=== PATIENT | male | born 1955 | race Caucasian/White ===

== ENCOUNTER 2016-06-10 08:08 | Outpatient (CLI) | payer BC | END 2016-06-10 08:09 | disposition home or self-care (01) | DX: Z12.2 Encounter for screening for malignant neoplasm of respiratory organs (principal); F17.210 Nicotine dependence, cigarettes, uncomplicated ==

== ENCOUNTER 2017-11-10 07:03 | Outpatient (CLI) | payer BC ==
[2017-11-10 12:39] LABS: BASOPHILS # (AUTO) 0.1 10^3/uL (0.0-0.1); EOSINOPHILS # (AUTO) 0.2 10^3/uL (0.0-0.7); EOSINOPHILS % (AUTO) 2.3 %; LYMPHOCYTES # (AUTO) 1.6 10^3/uL (1.5-3.5); LYMPHOCYTES % (AUTO) 19.8 %; MEAN CORPUSCULAR HEMOGLOBIN 32.7 pg (27.0-31.0); MEAN CORPUSCULAR HGB CONC 34.3 g/dL (32.0-36.0); MEAN CORPUSCULAR VOLUME 95.3 fL (80.0-94.0); MEAN PLATELET VOLUME 9.5 fL (7.4-11.4); MONOCYTES # (AUTO) 0.7 10^3/uL (0.0-1.0); MONOCYTES % (AUTO) 8.6 %; NEUTROPHILS # (AUTO) 5.4 10^3/uL (1.5-6.6); NEUTROPHILS % (AUTO) 68.3 %; PLT - PLATELET COUNT 182 10^3/uL (130-450); RED BLOOD COUNT 5.19 10^6/uL (4.70-6.10); RED CELL DISTRIBUTION WIDTH 13.3 % (12.0-15.0); WHITE BLOOD COUNT 7.9 x10^3/uL (4.8-10.8)
[2017-11-10 13:02] LABS: ALBUMIN 4.2 g/dL (3.2-5.5); ALBUMIN/GLOBULIN RATIO 1.2 (1.0-2.2); ALKALINE PHOSPHATASE 78 IU/L (42-121); ALT ALANINE AMINOTRANSFERASE 18 IU/L (10-60); AST ASPARTATE AMINOTRANSFERASE 23 IU/L (10-42); BILIRUBIN,TOTAL 0.7 mg/dL (0.2-1.0); BUN - BLOOD UREA NITROGEN 19 mg/dL (6-20); CALCIUM 9.5 mg/dL (8.5-10.3); CARBON DIOXIDE - CO2 28 mmol/L (21-32); CHLORIDE 100 mmol/L (101-111); CHOL/HDL RATIO 4.6 (<5.0); CHOLESTEROL 162 mg/dL; CREATININE 0.8 mg/dL (0.6-1.2); GFR - MDRD 98 (>89); GLUCOSE 103 mg/dL (70-100); HDL CHOLESTEROL 35 mg/dL; LDL CHOLESTEROL,CALCULATED 115 mg/dL; LDL/HDL RATIO 3.3 (<3.6); SODIUM 134 mmol/L (135-145); TOTAL PROTEIN 7.8 g/dL (6.7-8.2); VLDL CHOLESTEROL 12 mg/dL
[2017-11-10 13:44] LABS: THYROID STIMULATING HORMONE < 0.08 uIU/mL (0.34-5.60)
[2017-11-10 13:46] LABS: FREE T4 (FREE THYROXINE) 1.89 ng/dL (0.58-1.64)
[2017-11-10 13:51] LABS: HEMOGLOBIN A1C 0.66 g/dL; HEMOGLOBIN A1C % 5.3 % (4.6-6.2)
[2017-11-10 13:52] LABS: PSA SCREEN (Z12.5) 0.486 ng/mL (0.000-2.000)
[2017-11-10 13:56] LABS: FREE T3 3.71 pg/mL (2.5-3.9)
== END 2017-11-10 07:04 | disposition home or self-care (01) ==
LOC: LAB.WCP 07:03
PROVIDERS: ATTEND Physician Assistant
DX: E78.5 Hyperlipidemia, unspecified (principal); Z51.81 Encounter for therapeutic drug level monitoring; R73.9 Hyperglycemia, unspecified; Z12.5 Encounter for screening for malignant neoplasm of prostate; E29.1 Testicular hypofunction; E03.9 Hypothyroidism, unspecified
CPT/HCPCS: 36415; 80053; 80061; 83036; 83721; 84153; 84403; 84439; 84443; 84481; 85025

== ENCOUNTER 2017-12-19 12:40 | Outpatient (CLI) | payer BC ==
--- NOTE | 2017-12-19 16:27 | Ultrasound Report ---
Procedure Date: 12/19/2017 Accession Number: [id number] / [id number] Procedure: US - Retroperitoneal Limited CPT Code: FULL RESULT: EXAM: Retroperitoneal Limited DATE: 12/19/2017 4:17 PM CLINICAL HISTORY: ARTERIOSCLEROTIC HEART DISEASE/ABDOMINAL ANEURYSM COMPARISON: Abdominal ultrasound 04/28/2016. TECHNIQUE: Real-time sonographic imaging of retroperitoneal vascular structures, including color-flow, was performed by the solid waste technician. Multiple marketing representative static images were saved for review. FINDINGS: Aorta: The abdominal aorta is adequately visualized and the known infrarenal abdominal aortic aneurysm measures 5 cm in AP dimension by 5.1 cm in transverse dimension. There is posterior mural thrombus approximately 0.8 cm thick. By ultrasound there is no definite aneurysmal extension into the iliacs with the right common iliac artery measuring up to 1 x 0.7 centimeters and the left common iliac artery measuring up to 1.1 x 1.1 centimeters. The iliac vessels are patent by spectral Doppler with arterial waveform. The aneurysm is patent by color Doppler. IMPRESSION: Interval enlargement of the infrarenal abdominal aneurysm to 5 cm. Surgical or endovascular referral is recommended. [facility]
== END 2017-12-19 12:41 | disposition home or self-care (01) ==
LOC: DI 12:40
PROVIDERS: ATTEND Physician Assistant
DX: I71.4 Abdominal aortic aneurysm, without rupture (principal); I25.10 Atherosclerotic heart disease of native coronary artery without angina pectoris
CPT/HCPCS: 76775; 93306

== ENCOUNTER 2018-01-05 15:44 | Outpatient (CLI) | payer BC | END 2018-01-05 15:45 | disposition home or self-care (01) | LOC: LAB.WCP 15:44 | PROVIDERS: ATTEND Physician Assistant Medical | DX: E03.9 Hypothyroidism, unspecified (principal); I71.4 Abdominal aortic aneurysm, without rupture | CPT/HCPCS: 36415; 82565; 84443 ==

== ENCOUNTER 2018-01-30 12:17 | Outpatient (CLI) | payer BC ==
[2018-01-30 19:32] LABS: THYROID STIMULATING HORMONE < 0.08 uIU/mL (0.34-5.60)
[2018-01-30 19:34] LABS: FREE T4 (FREE THYROXINE) 1.42 ng/dL (0.58-1.64)
== END 2018-01-30 12:18 | disposition home or self-care (01) ==
LOC: LAB.WCP 12:17
PROVIDERS: ATTEND Physician Assistant
DX: E03.9 Hypothyroidism, unspecified (principal)
CPT/HCPCS: 36415; 84439; 84443

== ENCOUNTER 2018-02-16 10:40 | Outpatient (CLI) | payer BC | END 2018-02-16 10:41 | LOC: DI 10:40 | PROVIDERS: ATTEND Physician Assistant | DX: Z53.09 Procedure and treatment not carried out because of other contraindication (principal) ==

== ENCOUNTER 2018-05-30 08:00 | Outpatient (CLI) | payer BC ==
[2018-05-30 15:17] LABS: THYROID STIMULATING HORMONE 4.61 uIU/mL (0.34-5.60)
[2018-05-30 15:19] LABS: FREE T4 (FREE THYROXINE) 1.36 ng/dL (0.58-1.64)
== END 2018-05-30 23:59 | disposition home or self-care (01) ==
LOC: LAB.WCP 08:00
PROVIDERS: ATTEND Physician Assistant
DX: E03.9 Hypothyroidism, unspecified (principal)
CPT/HCPCS: 36415; 84439; 84443

== ENCOUNTER 2018-12-19 08:00 | Outpatient (CLI) | payer BC ==
[2018-12-19 13:17] LABS: FREE T4 (FREE THYROXINE) 1.59 ng/dL (0.58-1.64); THYROID STIMULATING HORMONE 1.9 uIU/mL (0.34-5.60)
== END 2018-12-19 23:59 | disposition home or self-care (01) ==
LOC: LAB.WCP 08:00
PROVIDERS: ATTEND Physician Assistant
DX: E03.9 Hypothyroidism, unspecified (principal)
CPT/HCPCS: 36415; 84439; 84443

== ENCOUNTER 2019-02-08 11:19 | Outpatient (CLI) | payer BC ==
[2019-02-08 18:36] LABS: BASOPHILS # (AUTO) 0.1 10^3/uL (0.0-0.1); BASOPHILS % (AUTO) 0.8 %; EOSINOPHILS # (AUTO) 0.2 10^3/uL (0.0-0.7); EOSINOPHILS % (AUTO) 2.4 %; HGB - HEMOGLOBIN 15.2 g/dL (14.0-18.0); LYMPHOCYTES # (AUTO) 2.2 10^3/uL (1.5-3.5); LYMPHOCYTES % (AUTO) 27.3 %; MEAN CORPUSCULAR HEMOGLOBIN 32.2 pg (27.0-31.0); MEAN CORPUSCULAR HGB CONC 33.3 g/dL (32.0-36.0); MEAN CORPUSCULAR VOLUME 96.8 fL (80.0-94.0); MEAN PLATELET VOLUME 11.3 fL (7.4-11.4); MONOCYTES # (AUTO) 0.7 10^3/uL (0.0-1.0); MONOCYTES % (AUTO) 8.9 %; NEUTROPHILS # (AUTO) 4.8 10^3/uL (1.5-6.6); NEUTROPHILS % (AUTO) 60.3 %; PLT - PLATELET COUNT 183 10^3/uL (130-450); RED BLOOD COUNT 4.72 10^6/uL (4.70-6.10); RED CELL DISTRIBUTION WIDTH 13.2 % (12.0-15.0)
[2019-02-08 19:01] LABS: ALBUMIN 4.3 g/dL (3.2-5.5); ALBUMIN/GLOBULIN RATIO 1.4 (1.0-2.2); ALKALINE PHOSPHATASE 55 IU/L (42-121); ALT ALANINE AMINOTRANSFERASE 17 IU/L (10-60); AST ASPARTATE AMINOTRANSFERASE 22 IU/L (10-42); BILIRUBIN,TOTAL 0.7 mg/dL (0.2-1.0); BUN - BLOOD UREA NITROGEN 24 mg/dL (6-20); CALCIUM 9.3 mg/dL (8.5-10.3); CARBON DIOXIDE - CO2 27 mmol/L (21-32); CHLORIDE 102 mmol/L (101-111); CHOL/HDL RATIO 3.8 (<5.0); CHOLESTEROL 147 mg/dL; CREATININE 0.9 mg/dL (0.6-1.2); GFR - MDRD 85 (>89); GLUCOSE 96 mg/dL (70-100); HDL CHOLESTEROL 39 mg/dL; LDL CHOLESTEROL,CALCULATED 93 mg/dL; LDL/HDL RATIO 2.4 (<3.6); SODIUM 136 mmol/L (135-145); TOTAL PROTEIN 7.3 g/dL (6.7-8.2); VLDL CHOLESTEROL 15 mg/dL
== END 2019-02-08 23:59 | disposition home or self-care (01) ==
LOC: LAB.WCP 11:19
PROVIDERS: ATTEND Physician Assistant
DX: I10 Essential (primary) hypertension (principal); E78.5 Hyperlipidemia, unspecified; E03.9 Hypothyroidism, unspecified; Z12.5 Encounter for screening for malignant neoplasm of prostate
CPT/HCPCS: 36415; 80053; 80061; 83721; 84153; 84443; 85025

== ENCOUNTER 2019-03-15 10:18 | Outpatient (CLI) | payer BC ==
--- NOTE | 2019-03-16 13:20 | CT Report ---
Reason: SMOKER Procedure Date: 03/15/2019 Accession Number: [id number] / [id number] Procedure: CT - Low Dose Lung Cancer Screen CPT Code: FULL RESULT: EXAM CT LUNG SCREEN EXAM DATE: 03/15/2019 10:34 AM. HISTORY: 64-year-old patient with [id number] smoking history. Currently smoking: Yes. COMPARISON: CHEST SCREEN LOW DOSE W/O 06/10/2016 8:35 AM CHEST W/ 01/21/2013 5:52 PM. TECHNIQUE: CT examination of the entire thorax without contrast was performed using low-dose technique. Thin section coronal, axial, sagittal and MIP axial images were obtained. In accordance with CT protocol optimization, one or more of the following dose reduction techniques were utilized for this exam: automated exposure control, adjustment of mA and/or KV based on patient size, or use of iterative reconstructive technique. FINDINGS: Nodules: Right upper lobe: Stable 2 mm pulmonary nodule series 4 image 16; stable 2-3 mm pulmonary nodule series 4 image 26; stable 2 mm pulmonary nodule series 4 image 79. Right middle lobe: None. Right lower lobe: None. Left upper lobe: None. Left lower lobe: None. Emphysema: None. Pleura: Stable focal areas of calcific pleural plaquing in the left hemithorax. New elongated/band-like pleural-based mass/consolidation posterior left lower hemithoracic pleura with convex anterior margin measuring 43 x 28 x 20 mm (reference series 4 images 91 through 104). Aorta: Atherosclerotic deposition of the arch and origin great vessels. Interval endograft repair incompletely included of partially included abdominal aortic aneurysm. Mediastinum: Unremarkable. Coronary calcifications: Significant coronary artery calcium of the left anterior descending coronary artery. Other pulmonary findings: None. Other extrapulmonary findings: None. IMPRESSION: 1. New band-like pleural-based mass/consolidation favors inflammatory process such as rounded atelectasis or sequela of pulmonary infarction more than mass. Lung-RADS ASSESSMENT CATEGORY: 3 - probably benign. Probability of malignancy: 1-2%. RECOMMENDATION: Recommend short interval follow-up low-dose lung CT in 6 weeks to assess for expected resolution or involution. If persistent or increased at follow-up, tissue sampling may be indicated. Recommended follow up based on ACR Lung-RADS Version 1.1 Guidelines. [facility]
== END 2019-03-15 10:19 | disposition home or self-care (01) ==
LOC: DI 10:18
PROVIDERS: ATTEND Physician Assistant
DX: Z12.2 Encounter for screening for malignant neoplasm of respiratory organs (principal); R91.8 Other nonspecific abnormal finding of lung field; F17.210 Nicotine dependence, cigarettes, uncomplicated

== ENCOUNTER 2020-04-16 16:54 | Emergency (ER) | payer BC, MEDICARE ==
--- NOTE | 2020-04-16 17:14 | ED Physician Documentation ---
PD HPI ABD PAIN - Stated complaint Stated Complaint: MALE - Chief complaint Chief Complaint: Abd Pain - History obtained from History obtained from: Patient - Additional information Additional information: 65-year-old gentleman with history of peripheral vascular disease and AAA repair presents with very dark urine starting 4 days ago. It is painless. No flank pain. No urinary urgency. If anything he might be urinating slightly less than normal. Review of Systems Ten Systems: 10 systems reviewed and negative Constitutional: reports: Reviewed and negative Nose: reports: Reviewed and negative Throat: reports: Reviewed and negative Cardiac: reports: Reviewed and negative Respiratory: reports: Reviewed and negative PD PAST MEDICAL HISTORY - Past Medical History Cardiovascular: Hypertension Respiratory: None Endocrine/Autoimmune: HyPOthyroidism GI: None : None HEENT: None Psych: None Musculoskeletal: None Derm: None - Past Surgical History General: Cholecystectomy, Hiatal hernia repair - Present Medications Home Medications: Ambulatory Orders Medication Instructions Recorded Confirmed Levothyroxine [Synthroid] 179 mcg PO DAILY 05/12/14 05/12/14 Aspirin [Aspir-Low] 81 mg PO DAILY 05/13/14 05/13/14 Pravastatin Sodium 20 mg PO DAILY 05/13/14 05/13/14 Ciprofloxacin HCl [Cipro] 500 mg PO BID 7 Days #14 tablet 04/16/20 - Allergies Allergies/Adverse Reactions: Allergies Allergy/AdvReac Type Severity Reaction Status Date / Time No Known Drug Allergies Allergy Verified 04/16/20 17:02 PD ED PE NORMAL - Vitals Vital signs reviewed: Yes - General General: Alert and oriented X 3, No acute distress - HEENT HEENT: PERRL, EOMI - Neck Neck: Supple, no meningeal sign, No bony TTP - Cardiac Cardiac: RRR, No murmur - Respiratory Respiratory: No respiratory distress, Clear bilaterally - Abdomen Abdomen: Soft, Non tender - Male Male : Other (His urine was viewed as the sample was available when I first saw him and very thick hematuria without clots) - Back Back: No CVA TTP, No spinal TTP - Derm Derm: Normal color, Warm and dry - Extremities Extremities: No edema, No calf tenderness / cord - Neuro Neuro: Alert and oriented X 3, Normal speech Results - Vitals Vitals: Vital Signs - 24 hr 04/16/20 04/16/20 04/16/20 17:02 19:18 20:01 Temperature 37.0 C Heart Rate 89 72 71 Respiratory 18 18 Rate Blood Pressure 154/82 H 144/100 H 135/73 H O2 Saturation 95 94 93 Oxygen O2 Source Room air - Labs Labs: Laboratory Tests 04/16/20 04/16/20 04/16/20 17:10 17:25 17:25 WBC 8.3 RBC 4.83 Hgb 16.1 Hct 46.1 MCV 95.4 H MCH 33.3 H MCHC 34.9 RDW 12.8 Plt Count 179 MPV 10.4 Neut # (Auto) 4.7 Lymph # (Auto) 2.3 [place] # (Auto) 0.9 Eos # (Auto) 0.3 Baso # (Auto) 0.1 Absolute Nucleated RBC 0.00 Nucleated RBC % 0.0 Sodium 134 L Potassium 4.3 Chloride 99 L Carbon Dioxide 24 Anion Gap 11.0 BUN 33 H Creatinine 1.4 H Estimated GFR (MDRD) 51 L Glucose 97 Calcium 9.5 Total Bilirubin 0.9 AST 27 ALT 22 Alkaline Phosphatase 63 Total Creatine Kinase 243 Total Protein 8.1 Albumin 4.6 Globulin 3.5 Albumin/Globulin Ratio 1.3 Urine Color BROWN Urine Clarity TURBID Urine pH 6.5 Ur Specific [place] 1.025 Urine Protein >=300 H Urine Glucose (UA) NEGATIVE Urine Ketones TRACE Urine Occult Blood LARGE H Urine Nitrite POSITIVE H Urine Bilirubin NEGATIVE Urine Urobilinogen 1 (NORMAL) Ur Leukocyte Esterase TRACE H Urine RBC TNTC H Urine WBC 4-5 Ur Squamous Epith Cells NONE SEEN Urine Bacteria Many H Ur Microscopic Review INDICATED Urine Culture Comments INDICATED PD MEDICAL DECISION MAKING - ED course ED course: 65yo M with gross painless hematuria... ddx includes bladder or renal malignancy, UTI, nephro/ureterolith or less likely but more concerning would be complication of AAA repair or vascular issue. S/O to Dr Laird at shift chg pend ing CT IVP. Departure - Departure Disposition: 01 Home, Self Care Clinical Impression: Urinary tract infection, Hematuria, Diverticula, bladder, Mass of bladder Condition: Good Instructions: ED UTI Cystitis Male Prescriptions: Ciprofloxacin HCl [Cipro] 500 mg PO BID 7 Days #14 tablet Comments: You have been found to have acute kidney injury, and a urinary tract infection, as well as possible urinary bladder cancer. You need to see a urologist to learn the next steps in care. It is very important that you hydrate well. Return to the ED for any new or worsening symptoms. [facility] [address], [place], [place] [id number] Discharge Date/Time: 04/16/20 20:10
[2020-04-16] MEDS ORDERED: IOVERSOL 320 100 ML VIAL IVP ONE ×2 (17:25→19:00)
[2020-04-16 17:33] LABS: BASOPHILS # (AUTO) 0.1 10^3/uL (0.0-0.1); BASOPHILS % (AUTO) 0.7 %; EOSINOPHILS # (AUTO) 0.3 10^3/uL (0.0-0.7); EOSINOPHILS % (AUTO) 3.9 %; HGB - HEMOGLOBIN 16.1 g/dL (14.0-18.0); LYMPHOCYTES # (AUTO) 2.3 10^3/uL (1.5-3.5); LYMPHOCYTES % (AUTO) 27.3 %; MEAN CORPUSCULAR HEMOGLOBIN 33.3 pg (27.0-31.0); MEAN CORPUSCULAR HGB CONC 34.9 g/dL (32.0-36.0); MEAN CORPUSCULAR VOLUME 95.4 fL (80.0-94.0); MEAN PLATELET VOLUME 10.4 fL (7.4-11.4); MONOCYTES # (AUTO) 0.9 10^3/uL (0.0-1.0); MONOCYTES % (AUTO) 11.2 %; NEUTROPHILS # (AUTO) 4.7 10^3/uL (1.5-6.6); NEUTROPHILS % (AUTO) 56.7 %; PLT - PLATELET COUNT 179 10^3/uL (130-450); RED BLOOD COUNT 4.83 10^6/uL (4.70-6.10); RED CELL DISTRIBUTION WIDTH 12.8 % (12.0-15.0); WHITE BLOOD COUNT 8.3 x10^3/uL (4.8-10.8)
[2020-04-16 18:17] LABS: ALBUMIN 4.6 g/dL (3.2-5.5); ALBUMIN/GLOBULIN RATIO 1.3 (1.0-2.2); BILIRUBIN,TOTAL 0.9 mg/dL (0.2-1.0); CALCIUM 9.5 mg/dL (8.5-10.3); CREATININE 1.4 mg/dL (0.6-1.2); TOTAL PROTEIN 8.1 g/dL (6.7-8.2)
[2020-04-16 18:28] LABS: GLUCOSE, URINE (UA) NEGATIVE (NEGATIVE); KETONES,URINE (UA) TRACE mg/dL (NEGATIVE); LEUKOCYTE ESTERASE, URINE TRACE (NEGATIVE); NITRITE,URINE POSITIVE (NEGATIVE); OCCULT BLOOD,URINE LARGE (NEGATIVE); PH,URINE 6.5 PH (5.0-7.5); PROTEIN,URINE >=300 mg/dL (NEGATIVE); UROBILINOGEN,URINE 1 (NORMAL) E.U./dL (NORMAL)
[2020-04-16 18:39] LABS: BACTERIA,URINE Many /HPF (None Seen); BILIRUBIN,URINE NEGATIVE (NEGATIVE); CLARITY,URINE TURBID (CLEAR); ICTOTEST,URINE NEGATIVE; RBC,URINE TNTC /HPF (0-5); SQUAMOUS EPITHELIAL CELL,UR NONE SEEN (<= Few)
[2020-04-16] MEDS ORDERED: LACTATED RINGERS 1,000 ML IV ONE (19:06)
--- NOTE | 2020-04-16 19:21 | CT Report ---
PROCEDURE: IVP INDICATIONS: Gross hematuria CONTRAST: IV CONTRAST: Optiray 320 ml: 140 PO CONTRAST: *NO PO CONTRAST TECHNIQUE: After the administration of intravenous contrast, 5 mm thick sections acquired from the diaphragms to the symphysis. 5 mm thick coronal and sagittal reformats were acquired. For radiation dose reducti on, the following was used: automated exposure control, adjustment of mA and/or kV according to nicole ent size. COMPARISON: None. FINDINGS: Image quality: Excellent. Lung bases: Lung bases are clear. Heart size is normal. Urinary system: There is a large bladder diverticulum on the left, with possible wall thickening gale g the posterior/dependent aspect of the urinary bladder wall (series 6 image 65). Normal distention o f the urinary bladder. No hydroureteronephrosis. Bilateral renal cysts. No evidence of renal calculus . Solid organs: The liver, spleen, pancreas, and adrenal glands are within normal limits. The gallbladd er has been removed. Peritoneum and bowel: Bowel loops demonstrate normal wall thickness and caliber. No free fluid or a ir. Nodes and vessels: Status post aortic aneurysm endograft repair. The excluded aneurysm sac measures a pproximately 5.6 cm in maximum dimension. No gross evidence of an endoleak, although exam was not gasper lored for aortic evaluation. Components of the stent extending into the right common iliac artery and into the bilateral renal arteries. Normal opacification of the lower vessels. Abdominal wall: No ventral hernias. Pelvis: No pathologic free pelvic fluid. No inguinal hernias or adenopathy. Bones: No suspicious bony lesions. No vertebral body compression fractures. IMPRESSION: Large bladder diverticulum on the left with possible wall thickening of the posterior/dependent wall of the diverticulum, raising suspicion for transitional cell carcinoma. Reviewed by: Alberto Canada MD on 04/16/2020 7:20 PM PST Approved by: Alberto Canada MD on 04/16/2020 7:20 PM PST Station ID: [id number]
--- NOTE | 2020-04-16 19:53 | ED Physician Documentation ---
ED Addendum - Addendum Addendum: 04/16/20 19:52 Patient Endorsed to me by Dr. Conley at 7 PM signout. He is in no acute distress and resting comfortably. Ordered a liter of fluids for mild TY. Discussed with patient results of CT abdomen pelvis and concern for transitional cell cancer. He is aware he needs to follow-up immediately with [facility] for further work-up. Also will send antibiotics to his pharmacy. Advise hydration. Strict return precautions given.
[2020-04-16 20:01] VITALS: BP 135/73
== END 2020-04-16 20:10 | disposition home or self-care (01) ==
LOC: ED 16:54
DX: N39.0 Urinary tract infection, site not specified (principal); R31.0 Gross hematuria; N17.9 Acute kidney failure, unspecified; N32.3 Diverticulum of bladder; N32.9 Bladder disorder, unspecified
CPT/HCPCS: 36415; 74178; 80053; 81001; 82550; 85025; 87086; 96360; 99283; 99284; J7120; Q9967; 81003

== ENCOUNTER 2021-09-21 07:35 | Outpatient (CLI) | payer MEDICARE, BC ==
--- NOTE | 2021-09-21 16:05 | CT Report ---
PROCEDURE: Low Dose Lung Cancer Screen INDICATIONS: SMOKER TECHNIQUE: Noncontrast low-dose images were acquired from the pulmonary apices to the posterior costophrenic ang les. Multiplanar MIP reformats were then acquired. For radiation dose reduction, the following was used: automated exposure control, adjustment of mA and/or kV according to patient size. COMPARISON: None. FINDINGS: Image quality: Excellent. Lungs and pleura: Multiple small 2-3 mm right upper lobe pulmonary nodules are unchanged. For exampl e, subpleural 3 mm nodule is seen in the superior aspect of the right upper lobe (image 57/series 4). No new pulmonary nodules identified. No suspicious pulmonary nodules seen in the right middle lobe, right lower lobe, left upper lobe, or left lower lobe. No acute airspace disease. Stable appearance of bandlike opacity involving the posterior medial left lower lobe with apparent crowding of the bron chovascular. Findings are again likely related to rounded atelectasis. Stable appearance of focal ple ural calcifications involving the left hemithorax. Mediastinum: Heart size is normal. No pericardial effusion. No mediastinal adenopathy by size crit eria. Moderate atherosclerotic calcifications of the coronary arteries are again noted. Thoracic aort a and central pulmonary arteries are normal in size. Atherosclerotic calcifications of the aorta are present as before. Partially imaged proximal abdominal aortic stent graft is again noted. Esophagus is normal in caliber. No hiatal hernia. Bones and chest wall: No suspicious bony lesions. No acute vertebral body compression fractures. N o axillary or supraclavicular adenopathy by size criteria. The thyroid is normal in size and there a re no incidental findings. Abdomen: Status post cholecystectomy. Remaining visualized upper abdomen solid organs and bowel loops appear unremarkable in the absence of contrast. IMPRESSION: 1. Stable appearance of multiple 2-3 mm right upper lobe pulmonary nodules. No new pulmonary nodules identified in the remaining bilateral hemithoraces. No acute airspace disease. 2. Stable appearance of curvilinear, bandlike pleural-based consolidation of the posterior or medial left lower lobe likely representing rounded atelectasis. 3. Atherosclerotic vascular disease. 4. Stable appearance of focal pleural calcifications of the left hemithorax. Lung RADS 3 (probably benign): Recommend follow-up chest CT in 6 months to document continued stabili ty. CLINICAL RECOMMENDATION STATEMENTS: In patients <35 years with an ITN detected on CT, MRI, or extrathyroidal ultrasound, the Committee re commends further evaluation with dedicated thyroid ultrasound if the nodule is "e1 cm and has no susp icious imaging features, and if the patient has normal life expectancy. In patients "e35 years with an ITN detected on CT, MRI, or extrathyroidal ultrasound, the Committee r ecommends further evaluation with dedicated thyroid ultrasound if the nodule is "e1.5 cm and has no s uspicious imaging features, and if the patient has normal life expectancy. (ACR, 2014) Reviewed by: Deuce Cordoba MD on 09/21/2021 4:04 PM PDT Approved by: Deuce Cordoba MD on 09/21/2021 4:04 PM PDT Station ID: [id number]
== END 2021-09-21 07:36 | disposition home or self-care (01) ==
LOC: DI 07:35
PROVIDERS: ATTEND Physician Assistant
DX: Z12.2 Encounter for screening for malignant neoplasm of respiratory organs (principal); Q34.0 Anomaly of pleura; F17.210 Nicotine dependence, cigarettes, uncomplicated; R91.8 Other nonspecific abnormal finding of lung field; I70.0 Atherosclerosis of aorta

== ENCOUNTER 2021-10-28 06:22 | Day surgery (SDC) | payer MEDICARE, BC ==
[~2021-10-28 06:22] MED LIST: CYCLOPENTOLATE 1% OPHTH DROPS 2 ML ONE; KETOROLAC 0.45% OPHTH DROPS ONE; PHENYLEPHRINE 2.5% OPHTH 2 ML DROPS ONE; PROPARACAINE 0.5% OPHTH DROPS 15 ML ONE
[2021-10-28] MEDS ORDERED: LACTATED RINGERS 1,000 ML IV ONE ×2 (06:27→08:30)
--- NOTE | 2021-10-28 07:19 | ANESTHESIA ---
Pre-Anesthesia VS, & Labs - Diagnosis right cataract nuclear sclerotic - Procedure right cataract extraction with iol Vital Signs: Temp Pulse Resp BP Pulse Ox 37.3 C 79 16 146/80 H 93 10/28/21 06:33 10/28/21 06:33 10/28/21 06:33 10/28/21 06:33 10/28/21 06:33 Height: 5 ft 10 in Weight (kg): 86.6 kg Body Mass Index: 27.3 BMI Classification: Overweight - NPO >8 hours Home Medications and Allergies Levothyroxine [Synthroid] 179 mcg PO DAILY 05/12/14 Allergies/Adverse Reactions: Allergies Allergy/AdvReac Type Severity Reaction Status Date / Time No Known Drug Allergies Allergy Verified 04/16/20 17:02 Anes History & Medical History - Anesthetic History Anesthesia Complications: reports: No previous complications - Medical History Cardiovascular: reports: Hypertension Pulmonary: reports: None Gastrointestinal: reports: None Urinary: reports: None Musculoskeletal: reports: None Endocrine/Autoimmune: reports: HyPOthyroidism Skin: reports: None Smoking Status: Current some day smoker History of Cancer?: No - Surgical History General: reports: Cholecystectomy, Hiatal hernia repair Cardiothoracic: reports: AAA (endoscopic) Exam General: Alert Dental: WNL Mouth Opening: Greater than 4 Fingerbreadths Neck Mobility: Normal Mallampati classification: II Thyromental Distance: greater than 6 cm Respiratory: Lungs clear Cardiovascular: Regular rate, Normal S1, Normal S2 Plan Anesthesia Type: MAC Consent for Procedure(s) Verified and Reviewed: Yes Code Status: Attempt Resuscitation ASA classification: 2-Mild systemic disease Is this case an emergency?: No
[2021-10-28] MEDS ORDERED: MIDAZOLAM 2 MG/2 ML VIAL ONE (07:52)
[2021-10-28] MEDS ORDERED: VANCOMYCIN OPHTHALMI 8MG/0.8ML 8 MG/0.8 ML SYRINGE IO ONE (08:17)
[2021-10-28] MEDS ORDERED: PROPARACAINE 0.5% OPHTH DROPS 15 ML EACHEYE ONE (08:17)
[2021-10-28] MEDS ORDERED: BRIMONIDINE 0.2% OPHTH DROPS 5 ML OPTH ONE (08:17)
[2021-10-28] MEDS ORDERED: TRIAMCIN/MOXIFLOX OPHTHALMIC 0.6 ML VIAL IO ONE ×2 (08:17→10:32)
[2021-10-28] MEDS ORDERED: BSS/LIDOCAINE/EPINEPHRINE 1 ML SYRINGE IO ONE (08:17)
[2021-10-28] MEDS ORDERED: EPINEPHrine 1 MG/ML AMP IR ONE (08:17)
[2021-10-28] MEDS ORDERED: TIMOLOL 0.5% OPHTH DROPS OPTH ONE (08:17)
[2021-10-28] MEDS ORDERED: fentaNYL 100 MCG/2 ML VIAL ONE (08:23)
--- NOTE | 2021-10-28 08:38 | OPERATIVE REPORT ---
Operative Report - Other Other Information/Narrative: Date of Surgery: 10/28/21 Preop Dx: Visually significant cataract right eye. This was the first cataract surgery. Postop Dx: Same Procedure: Phacoemulsification with posterior chamber intraocular lens implant right eye Surgeon: Dr. Shant Gallardo Anesthesia: Monitored anesthesia care Complications: None Operative Indications: This is a 66-year-old M with progressive vision loss in the right eye due to 3-4+ nuclear sclerotic cataract. Best corrected visual acuity was 20/40 with glare to 20/100 vision in the right eye. Indications for surgery were: - Overall decrease in vision - Difficulty seeing words, closed captions, or game scores on TV - Difficulty seeing street signs - Difficulty driving at night because of headlights from other vehicles - Difficulty with glare or bright lights in any situation The patient was consented at length concerning the risks and benefits of cataract surgery after which the patient expressed a desire to proceed with surgery. Operative Procedure: The patient was taken into OR#3 and placed under monitored anesthesia care. A surgical time-out was conducted confirming correct patient, correct procedure, and correct surgical site. The patient was given topical anesthesia and then prepped and draped in the usual sterile fashion. The eye was entered at the 6 and 3 oclock positions. Intracameral Shugarcaine was injected into the anterior chamber followed by a dispersive viscoelastic. A continuous-tear curvilinear capsulorhexis was performed. The nucleus was hydro dissected and phacoemulsified. The cortex was evacuated using automated infusion and aspiration. A cohesive viscoelastic was injected into the capsular bag and a 13.0 diopter intraocular lens was inserted into the bag. Infusion and aspiration were used to evacuate the viscoelastic materials from the eye. The wounds were hydrated and the eye inflated to physiologic pressure using balanced salt solution. Approximately 0.25ml of a mixture of triamcinolone and moxifloxacin was injected trans-sclerally into the vitreous in the inferotemporal quadrant using a 30 gauge cannula. An additional 0.55ml of a mixture of triamcinolone, moxifloxacin, and vancomycin was injected subconjunctivally in the superior quadrant for infection and inflammation prophylaxis. Wound integrity was checked with Weck-Lashawn sponges. The patient was taken from the operating room in good condition and given post-op instructions.
[2021-10-28 08:45] VITALS: BP 111/78
--- NOTE | 2021-10-28 09:09 | ANESTHESIA POST OP EVALUATION ---
Anesthesia Post Eval - Post Anesthesia Eval Vitals: Last Vital Signs Temp 37.0 C 10/28/21 08:44 Pulse 63 10/28/21 08:44 Resp 15 10/28/21 08:44 BP 111/78 10/28/21 08:44 Pulse Ox 95 10/28/21 08:44 CV Function Including HR & BP: Stable Pain Control: Satisfactory Nausea & Vomiting: Negative Mental Status: Baseline Respiratory Status: Airway Patent Hydration Status: Satisfactory Anesthesia Complications: None
[2021-10-28] MEDS ORDERED: EPINEPHrine 1 MG/ML AMP ONE (10:32)
[2021-10-28] MEDS ORDERED: BSS/LIDOCAINE/EPINEPHRINE 1 ML VIAL ONE (10:32)
[2021-10-28] MEDS ORDERED: BRIMONIDINE 0.2% OPHTH DROPS 5 ML ONE (10:32)
[2021-10-28] MEDS ORDERED: TIMOLOL 0.5% OPHTH DROPS ONE (10:32)
== END 2021-10-28 06:23 | disposition home or self-care (01) ==
LOC: SDS 06:22
PROVIDERS: ATTEND Ophthalmology
DX: H25.11 Age-related nuclear cataract, right eye (principal); F17.200 Nicotine dependence, unspecified, uncomplicated
CPT/HCPCS: 66984; A9270; J3490; J7120

== ENCOUNTER 2021-11-08 10:30 | Outpatient (CLI) | payer MEDICARE, BC ==
[2021-11-08 12:02] LABS: BASOPHILS # (AUTO) 0.1 10^3/uL (0.0-0.1); BASOPHILS % (AUTO) 0.9 %; EOSINOPHILS # (AUTO) 0.1 10^3/uL (0.0-0.7); EOSINOPHILS % (AUTO) 1.5 %; HCT - HEMATOCRIT 50.5 % (42.0-52.0); HGB - HEMOGLOBIN 17.3 g/dL (14.0-18.0); LYMPHOCYTES # (AUTO) 1.8 10^3/uL (1.5-3.5); LYMPHOCYTES % (AUTO) 24.6 %; MEAN CORPUSCULAR HGB CONC 34.3 g/dL (32.0-36.0); MEAN CORPUSCULAR VOLUME 99.2 fL (80.0-94.0); MEAN PLATELET VOLUME 10.7 fL (7.4-11.4); MONOCYTES # (AUTO) 0.7 10^3/uL (0.0-1.0); MONOCYTES % (AUTO) 9.5 %; NEUTROPHILS # (AUTO) 4.7 10^3/uL (1.5-6.6); NEUTROPHILS % (AUTO) 63.2 %; PLT - PLATELET COUNT 180 10^3/uL (130-450); RED BLOOD COUNT 5.09 10^6/uL (4.70-6.10); RED CELL DISTRIBUTION WIDTH 13.1 % (12.0-15.0); WHITE BLOOD COUNT 7.4 x10^3/uL (4.8-10.8)
[2021-11-08 12:19] LABS: ALBUMIN 4.6 g/dL (3.2-5.5); ALBUMIN/GLOBULIN RATIO 1.2 (1.0-2.2); ALKALINE PHOSPHATASE 60 IU/L (42-121); ALT ALANINE AMINOTRANSFERASE 16 IU/L (10-60); AST ASPARTATE AMINOTRANSFERASE 20 IU/L (10-42); BILIRUBIN,TOTAL 0.7 mg/dL (0.2-1.0); BUN - BLOOD UREA NITROGEN 26 mg/dL (6-20); CALCIUM 9.7 mg/dL (8.5-10.3); CARBON DIOXIDE - CO2 27 mmol/L (21-32); CHLORIDE 102 mmol/L (101-111); CHOL/HDL RATIO 4.3 (<5.0); CHOLESTEROL 171 mg/dL; GFR - MDRD 75 (>89); GLUCOSE 97 mg/dL (70-100); HDL CHOLESTEROL 40 mg/dL; LDL CHOLESTEROL,CALCULATED 113 mg/dL; LDL/HDL RATIO 2.8 (<3.6); POTASSIUM 4.6 mmol/L (3.5-5.0); SODIUM 138 mmol/L (135-145); TOTAL PROTEIN 8.4 g/dL (6.7-8.2); TRIGLYCERIDES 88 mg/dL; VLDL CHOLESTEROL 18 mg/dL
[2021-11-08 12:30] LABS: THYROID STIMULATING HORMONE 1.75 uIU/mL (0.34-5.60)
== END 2021-11-08 10:31 | disposition home or self-care (01) ==
LOC: LAB.N 10:30
PROVIDERS: ATTEND Physician Assistant
DX: I10 Essential (primary) hypertension (principal); E78.5 Hyperlipidemia, unspecified; E03.9 Hypothyroidism, unspecified
CPT/HCPCS: 36415; 80053; 80061; 83721; 84443; 85025

== ENCOUNTER 2021-12-16 09:06 | Day surgery (SDC) | payer MEDICARE, BC ==
[~2021-12-16 09:06] MED LIST changes: -PROPARACAINE 0.5% OPHTH DROPS 15 ML ONE
[2021-12-16] MEDS ORDERED: LACTATED RINGERS 1,000 ML IV ONE ×2 (09:26→10:50)
[2021-12-16] MEDS ORDERED: PROPARACAINE 0.5% OPHTH DROPS 15 ML ONE (09:47)
--- NOTE | 2021-12-16 10:25 | ANESTHESIA ---
Pre-Anesthesia VS, & Labs - Diagnosis LEFT NUCLEAR CATARACT - Procedure EXTRACTION LEFT CATARACT WITH LENS IMPLANT Vital Signs: Temp Pulse Resp BP Pulse Ox 36.8 C 61 16 144/87 H 97 12/16/21 09:28 12/16/21 09:28 12/16/21 09:28 12/16/21 09:28 12/16/21 09:28 Height: 5 ft 10 in Weight (kg): 86.6 kg Body Mass Index: 27.3 BMI Classification: Overweight - NPO >8 hours Home Medications and Allergies Levothyroxine [Synthroid] 179 mcg PO DAILY 05/12/14 Allergies/Adverse Reactions: Allergies Allergy/AdvReac Type Severity Reaction Status Date / Time No Known Drug Allergies Allergy Verified 12/16/21 09:46 Anes History & Medical History - Anesthetic History Anesthesia Complications: reports: No previous complications Family history of Anesthesia Complications: Denies Family history of Malignant Hyperthermia: Denies - Medical History Cardiovascular: reports: Hypertension, Other (AAA STENT/REPAIR) Pulmonary: reports: None, Shortness of breath (WITH EXERTION), Sleep apnea Gastrointestinal: reports: None Urinary: reports: None Neuro: reports: None Musculoskeletal: reports: None Endocrine/Autoimmune: reports: HyPOthyroidism Blood Disorders: reports: None Skin: reports: None Smoking Status: Current some day smoker (40 YEAR SMOKER; 1PPD) History of Cancer?: No - Surgical History General: reports: Cholecystectomy, Hiatal hernia repair, Colonoscopy Eyes Ears Nose Throat (EENT): reports: Cataracts, Other (UPP) Cardiothoracic: reports: AAA Exam General: Alert, Oriented x3, Cooperative, No acute distress Dental: WNL Mouth Openin Fingerbreadth Mallampati classification: I Thyromental Distance: 4-6 cm Respiratory: Lungs clear, Normal breath sounds, No respiratory distress, No accessory muscle use Cardiovascular: Regular rate, Normal S1, Normal S2, No murmurs Mental/Cognitive Status: Alert/Oriented X3, Normal for patient Cognitive Status: Within normal limits Plan Anesthesia Type: MAC Consent for Procedure(s) Verified and Reviewed: Yes Code Status: Attempt Resuscitation ASA classification: 2-Mild systemic disease Is this case an emergency?: No
[2021-12-16] MEDS ORDERED: BRIMONIDINE 0.2% OPHTH DROPS 5 ML OPTH ONE (10:45)
[2021-12-16] MEDS ORDERED: BSS/LIDOCAINE/EPINEPHRINE 1 ML SYRINGE IO ONE (10:45)
[2021-12-16] MEDS ORDERED: TRIAMCIN/MOXIFLOX OPHTHALMIC 0.6 ML VIAL IO ONE ×2 (10:45→12:40)
[2021-12-16] MEDS ORDERED: EPINEPHrine 1 MG/ML AMP IR ONE (10:45)
[2021-12-16] MEDS ORDERED: TIMOLOL 0.5% OPHTH DROPS OPTH ONE (10:45)
[2021-12-16] MEDS ORDERED: VANCOMYCIN OPHTH (TOPICAL) 10 MG/ML SYRINGE TOP ONE (10:46)
[2021-12-16] MEDS ORDERED: MIDAZOLAM 2 MG/2 ML VIAL ONE (10:46)
[2021-12-16] MEDS ORDERED: PROPARACAINE 0.5% OPHTH DROPS 15 ML EACHEYE ONE (10:46)
[2021-12-16] MEDS ORDERED: fentaNYL 100 MCG/2 ML VIAL ONE (10:50)
--- NOTE | 2021-12-16 10:58 | OPERATIVE REPORT ---
Operative Report - Other Other Information/Narrative: Date of Surgery: 12/16/21 Preop Dx: Visually significant cataract left eye. Cataract surgery was performed in the right eye on . Postop Dx: Same Procedure: Phacoemulsification with posterior chamber intraocular lens implant left eye Surgeon: Dr. Shant Gallardo Anesthesia: Monitored anesthesia care Complications: None Operative Indications: This is a 66-year-old M with progressive vision loss in the left eye due to 3+ nuclear sclerotic cataract. Best corrected visual acuity was 20/25 with glare to 20/50 vision in the left eye. Indications for surgery were: - Difficulty reading - Difficulty seeing words, closed captions, or game scores on TV - Difficulty seeing street signs - Difficulty driving in low light or at night - Difficulty driving at night because of headlights from other vehicles The patient was consented at length concerning the risks and benefits of cataract surgery after which the patient expressed a desire to proceed with surgery. Operative Procedure: The patient was taken into OR#3 and placed under monitored anesthesia care. A surgical time-out was conducted confirming correct patient, correct procedure, and correct surgical site. The patient was given topical anesthesia and then prepped and draped in the usual sterile fashion. The eye was entered at the 6 and 3 oclock positions. Intracameral Shugarcaine was injected into the anterior chamber followed by a dispersive viscoelastic. A continuous-tear curvilinear capsulorhexis was performed. The nucleus was hydrodissected and phacoemulsified. The cortex was evacuated using automated infusion and aspiration. A cohesive viscoelastic was injected into the capsular bag and a 12.5 diopter intraocular lens was inserted into the bag. Infusion and aspiration were used to evacuate the viscoelastic materials from the eye. The wounds were hydrated and the eye inflated to physiologic pressure using balanced salt solution. Approximately 0.25ml of a mixture of triamcinolone and moxifloxacin was injected trans-sclerally into the vitreous in the inferotemporal quadrant using a 30 gauge cannula. An additional 0.55ml of a mixture of triamcinolone and moxifloxacin was injected subconjunctivally in the superior quadrant for infection and inflammation prophylaxis. Wound integrity was checked with Weck-Lashawn sponges. The patient was taken from the operating room in good condition and given post-op instructions.
[2021-12-16 11:46] VITALS: BP 131/59
--- NOTE | 2021-12-16 12:13 | ANESTHESIA POST OP EVALUATION ---
Anesthesia Post Eval - Post Anesthesia Eval Vitals: Last Vital Signs Temp 36.4 C L 12/16/21 11:15 Pulse 60 12/16/21 11:15 Resp 16 12/16/21 11:15 BP 131/59 H 12/16/21 11:15 Pulse Ox 95 12/16/21 11:15 CV Function Including HR & BP: Stable Pain Control: Satisfactory Nausea & Vomiting: Negative Mental Status: Baseline Respiratory Status: Airway Patent Hydration Status: Satisfactory Anesthesia Complications: None
[2021-12-16] MEDS ORDERED: EPINEPHrine 1 MG/ML AMP ONE (12:40)
[2021-12-16] MEDS ORDERED: BRIMONIDINE 0.2% OPHTH DROPS 5 ML ONE (12:40)
[2021-12-16] MEDS ORDERED: TIMOLOL 0.5% OPHTH DROPS ONE (12:40)
[2021-12-16] MEDS ORDERED: BSS/LIDOCAINE/EPINEPHRINE 1 ML VIAL ONE (12:41)
== END 2021-12-16 09:07 | disposition home or self-care (01) ==
LOC: SDS 09:06
PROVIDERS: ATTEND Ophthalmology
DX: H25.12 Age-related nuclear cataract, left eye (principal); Z98.41 Cataract extraction status, right eye; F17.200 Nicotine dependence, unspecified, uncomplicated; I10 Essential (primary) hypertension; G47.30 Sleep apnea, unspecified
CPT/HCPCS: 66984; A9270; J3490; J7120

== ENCOUNTER 2022-07-20 13:35 | Outpatient (CLI) | payer MEDICARE, BC | END 2022-07-20 23:59 | disposition home or self-care (01) | LOC: LAB.WCP 13:35 | PROVIDERS: ATTEND Physician Assistant Medical | DX: R31.9 Hematuria, unspecified (principal) | CPT/HCPCS: 87086 ==

== ENCOUNTER 2022-07-26 13:56 | Outpatient (CLI) | payer MEDICARE, BC ==
[2022-07-26 14:33] LABS: CREATININE 0.9 mg/dL (0.6-1.2)
[2022-07-26] MEDS ORDERED: iohexoL-300 100 ML VIAL ONE (14:46)
[2022-07-26] MEDS ORDERED: iohexoL-300 100 ML VIAL IVP ONE (15:31)
--- NOTE | 2022-07-26 16:39 | CT Report ---
PROCEDURE: IVP INDICATIONS: ANOMALY OF PLEURAL FOLDS, HEMATURIA CONTRAST: 140mL Omni 300 TECHNIQUE: After the administration of intravenous contrast, 5 mm thick sections acquired from the diaphragms to the symphysis. 5 mm thick coronal and sagittal reformats were acquired. For radiation dose reducti on, the following was used: automated exposure control, adjustment of mA and/or kV according to nicole ent size. COMPARISON: None. FINDINGS: Image quality: Excellent. Lung bases: Please see dedicated chest CT for further discussion. Urinary system: A couple of right-sided stones, largest measuring 6 mm (478 2), the other is punctate . Small burden of nonobstructing left-sided nephrolithiasis, all punctate. No hydronephrosis. No comp clary renal cystic lesions which require follow-up. Left posterior bladder wall diverticulum with a thi ckened wall (/). Solid organs: Liver and spleen are normal in size and enhancement. Gallbladder is unremarkable. Bi liary system is non dilated. Pancreas enhances normally. No adrenal nodules. Peritoneum and bowel: Bowel loops demonstrate normal wall thickness and caliber. No free fluid or a ir. Nodes and vessels: Infrarenal aortic aneurysm, status post EVAR. The sac measures 5.6 cm, unchanged f rom prior. Left bifemoral bypass, which appears patent. Abdominal wall: No ventral hernias. Pelvis: No pathologic free pelvic fluid. No inguinal hernias or adenopathy. Bones: No suspicious bony lesions. No vertebral body compression fractures. IMPRESSION: 1.Similar left posterior bladder wall diverticulum with a thickened wall, concerning for malignancy. Direct visualization is recommended, if not already performed. 2.Small burden of bilateral nonobstructing stones. 3.Stable infrarenal aortic aneurysm, status post endovascular stenting. 4.Please see dedicated chest CT for further discussion. Reviewed by: Luis Lay on 07/26/2022 4:38 PM PST Approved by: Luis Lay on 07/26/2022 4:38 PM PST Station ID: [id number]
--- NOTE | 2022-07-26 16:53 | CT Report ---
PROCEDURE: CHEST WO INDICATIONS: ANOMALY OF PLEURAL FOLDS, HEMATURIA TECHNIQUE: Noncontrast 1mm axial images were acquired from the pulmonary apices to the posterior costophrenic an gles. Axial 5 mm soft tissue kernel reconstructions were performed as well as 8 mm axial MIP and cor onal and sagittal 5 mm reformations. For radiation dose reduction, the following was used: automate d exposure control, adjustment of mA and/or kV according to patient size. COMPARISON: CT 09/21/2021, 03/15/2019. FINDINGS: Image quality: Suboptimal due to motion artifact in the lung bases. Lungs and pleura: Mild paraseptal and centrilobular emphysema. Stable region of lenticular consolidat ion in the medial left lower lobe, with associated air bronchograms and volume loss. Stable sub-4 mm pulmonary nodules in the right upper lobe. No new or growing pulmonary nodules. Mediastinum: Heart size is mildly enlarged. No pericardial effusion.Thoracic aorta and central pulm onary arteries are normal in size. Esophagus is normal in caliber. No hiatal hernia. Marked lemons ry calcifications for age. New mediastinal adenopathy. Examples include (short axis reported): -3.4 cm right upper paratracheal node (2/). -2 cm prevascular node (2/). Bones and chest wall: No suspicious bony lesions. No vertebral body compression fractures. No axil hazel or supraclavicular adenopathy by size criteria. The thyroid is normal in size and there are no incidental findings. Abdomen: Please see dedicated abdominal CT for further discussion. IMPRESSION: 1.New mediastinal adenopathy. In the absence of suspicious lung mass, lymphoma is likely. Tissue samp ling should be considered for confirmation. 2.Stable lenticular consolidation in the left lower lobe, presumably rounded atelectasis given long-t erm stability. 3.Marked coronary artery calcifications for age. Consider cardiology referral. CLINICAL RECOMMENDATION STATEMENTS: In patients <35 years with an ITN detected on CT, MRI, or extrathyroidal ultrasound, the Committee re commends further evaluation with dedicated thyroid ultrasound if the nodule is "e1 cm and has no susp icious imaging features, and if the patient has normal life expectancy. In patients "e35 years with an ITN detected on CT, MRI, or extrathyroidal ultrasound, the Committee r ecommends further evaluation with dedicated thyroid ultrasound if the nodule is "e1.5 cm and has no s uspicious imaging features, and if the patient has normal life expectancy. (ACR, 2014) Reviewed by: Luis Lay on 07/26/2022 4:51 PM PST Approved by: Luis Lay on 07/26/2022 4:51 PM PST Station ID: [id number]
== END 2022-07-26 13:57 | disposition home or self-care (01) ==
LOC: LAB 13:56
PROVIDERS: ATTEND Physician Assistant Medical
DX: R31.9 Hematuria, unspecified (principal); N32.3 Diverticulum of bladder; N21.0 Calculus in bladder; I71.43 Infrarenal abdominal aortic aneurysm, without rupture; R59.0 Localized enlarged lymph nodes; R91.8 Other nonspecific abnormal finding of lung field; I25.10 Atherosclerotic heart disease of native coronary artery without angina pectoris
CPT/HCPCS: 36415; 71250; 74178; 82565; Q9967

== ENCOUNTER 2022-09-27 09:11 | Emergency (ER) | payer MEDICARE, BC ==
[2022-09-27 10:00] LABS: BASOPHILS # (AUTO) 0.1 10^3/uL (0.0-0.1); BASOPHILS % (AUTO) 0.8 %; EOSINOPHILS # (AUTO) 0.1 10^3/uL (0.0-0.7); EOSINOPHILS % (AUTO) 1.7 %; HCT - HEMATOCRIT 37.5 % (42.0-52.0); HGB - HEMOGLOBIN 11.9 g/dL (14.0-18.0); LYMPHOCYTES # (AUTO) 1.5 10^3/uL (1.5-3.5); LYMPHOCYTES % (AUTO) 23.7 %; MEAN CORPUSCULAR HEMOGLOBIN 28.2 pg (27.0-31.0); MEAN CORPUSCULAR HGB CONC 31.7 g/dL (32.0-36.0); MEAN CORPUSCULAR VOLUME 88.9 fL (80.0-94.0); MEAN PLATELET VOLUME 10.2 fL (7.4-11.4); MONOCYTES # (AUTO) 0.2 10^3/uL (0.0-1.0); MONOCYTES % (AUTO) 3.6 %; NEUTROPHILS # (AUTO) 4.4 10^3/uL (1.5-6.6); NEUTROPHILS % (AUTO) 69.9 %; PLT - PLATELET COUNT 167 10^3/uL (130-450); RED BLOOD COUNT 4.22 10^6/uL (4.70-6.10); RED CELL DISTRIBUTION WIDTH 15.6 % (12.0-15.0); WHITE BLOOD COUNT 6.3 x10^3/uL (4.8-10.8)
[2022-09-27 10:16] LABS: ALBUMIN 3.3 g/dL (3.2-5.5); ALBUMIN/GLOBULIN RATIO 0.9 (1.0-2.2); BILIRUBIN,TOTAL 0.5 mg/dL (0.2-1.0); CALCIUM 8.8 mg/dL (8.5-10.3); CREATININE 0.9 mg/dL (0.6-1.2); POTASSIUM 4.8 mmol/L (3.5-5.0)
--- NOTE | 2022-09-27 11:27 | Ultrasound Report ---
PROCEDURE: Duplex Ext Veins Left INDICATIONS: swelling TECHNIQUE: Real-time imaging, as well as color and pulse Doppler interrogation, were performed of the lower extr emity deep veins from the inguinal ligament to the popliteal fossa. COMPARISON: None. FINDINGS: The deep veins are normally compressible, and free of intraluminal thrombus. Color and pu lse Doppler demonstrate normal phasic intraluminal flow. There is normal augmentation response to di stal compression maneuver. There is a heterogeneously hypoechoic and lobulated solid-appearing lesion in left upper according an d measures up to 4.1 x 1.9 x 4.7 cm in size. Increased internal vascularity is seen. IMPRESSION: 1. No evidence of DVT in visualized left lower extremity veins. 2. Lobulated hypervascular mass in upper left groin area as described above. Finding likely represent abnormally enlarged inguinal lymph node. This lesion is amenable to ultrasound-guided biopsy/fine-ne edle aspiration. Reviewed by: Andrew Little MD on 09/27/2022 11:26 AM PDT Approved by: Andrew Little MD on 09/27/2022 11:26 AM PDT Station ID: [id number]
--- NOTE | 2022-09-27 11:41 | ED Physician Documentation ---
History of Present Illness - Stated complaint Stated Complaint: LT LEG SWELLING - Chief complaint Chief Complaint: General - History obtained from History obtained from: Patient - Additonal information Additional information: Patient is a 67-year-old male with a history of bladder cancer for which she is undergoing chemotherapy presenting for evaluation of left leg swelling that he has noticed for the past 2 days. He called the oncology office today and recommended he come in for evaluation of DVT. Patient denies history of PE or DVT and is not on any anticoagulation. He reports history of COPD and denies any change in breathing and does not currently feel any shortness of breath or chest pain. He has also noticed some swelling to the scrotal region. He denies any tenderness.He has been able to urinate without issue. Review of Systems Constitutional: denies: Fever Cardiac: denies: Chest pain / pressure Respiratory: denies: Dyspnea GI: denies: Abdominal Pain, Vomiting : denies: Dysuria Musculoskeletal: reports: Extremity swelling Neurologic: denies: Headache PD PAST MEDICAL HISTORY - Past Medical History Cardiovascular: Hypertension, Other Respiratory: None, Shortness of breath, Sleep apnea Neuro: None Endocrine/Autoimmune: HyPOthyroidism GI: None : None HEENT: None Psych: None Musculoskeletal: None Derm: None - Past Surgical History Past Surgical History: Yes General: Cholecystectomy, Hiatal hernia repair, Colonoscopy Cardiovascular: AAA HEENT: Cataracts, Other - Present Medications Home Medications: Ambulatory Orders Medication Instructions Recorded Confirmed Levothyroxine [Synthroid] 179 mcg PO DAILY 05/12/14 09/27/22 Furosemide [Lasix] 20 mg PO DAILY #3 tablet 09/27/22 Ondansetron [Ondansetron Odt] 8 mg PO PRN PRN 09/27/22 09/27/22 Prochlorperazine [Compazine] 10 mg PO Q6H 09/27/22 09/27/22 cephALEXin [Keflex] 500 mg PO Q6H #28 cap 09/27/22 - Allergies Allergies/Adverse Reactions: Allergies Allergy/AdvReac Type Severity Reaction Status Date / Time No Known Drug Allergies Allergy Verified 09/27/22 09:19 - Social History Does the pt smoke?: No Smoking Status: Never smoker PD ED PE NORMAL - General General: Alert and oriented X 3, No acute distress, Well developed/nourished - HEENT HEENT: Atraumatic - Neck Neck: Supple, no meningeal sign - Cardiac Cardiac: RRR, No murmur, Strong equal pulses - Respiratory Respiratory: No respiratory distress, Clear bilaterally - Abdomen Abdomen: Normal bowel sounds, Soft, Non tender, Non distended - Male Male : 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), Other (Scrotal swelling, no erythema or tenderness) - Derm Derm: Other (Faint erythema to anterior left lower extremity) - Extremities Extremities: No calf tenderness / cord, Other (Pitting edema to left lower extremity from foot extending to just below knee) - Neuro Neuro: No motor deficit, No sensory deficit Results - Vitals Vitals: Vital Signs - 24 hr 09/27/22 09/27/22 09/27/22 09:15 10:01 11:57 Temperature 36.4 C L Heart Rate 76 65 70 Respiratory 20 18 18 Rate Blood Pressure 151/77 H 118/75 148/78 H O2 Saturation 94 96 99 09/27/22 12:21 Temperature 36.9 C Heart Rate 80 Respiratory 18 Rate Blood Pressure 141/81 H O2 Saturation 97 Oxygen O2 Source Room air - EKG (time done) 0930 EKG releavant findings:: EKG personally interpreted by author of this note. Relevant findings are: Rate 66, normal sinus rhythm, no STEMI, right bundle branch block, QTc 473 Rate: Rate (enter#) (66) Rhythm: NSR Intervals: RBBB. No: Prolonged QT Ischemia: No: ST elevation c/w ischemia - Labs Labs: Laboratory Tests 09/27/22 09/27/22 09/27/22 09:55 09:55 09:55 WBC 6.3 RBC 4.22 L Hgb 11.9 L Hct 37.5 L MCV 88.9 MCH 28.2 MCHC 31.7 L RDW 15.6 H Plt Count 167 MPV 10.2 Neut # (Auto) 4.4 Lymph # (Auto) 1.5 [place] # (Auto) 0.2 Eos # (Auto) 0.1 Baso # (Auto) 0.1 Absolute Nucleated RBC 0.00 Nucleated RBC % 0.0 Sodium 138 Potassium 4.8 Chloride 103 Carbon Dioxide 26 Anion Gap 9.0 BUN 31 H Creatinine 0.9 Estimated GFR (MDRD) 84 L Glucose 98 Calcium 8.8 Total Bilirubin 0.5 AST 25 ALT 20 Alkaline Phosphatase 66 B-Natriuretic Peptide 101 H Total Protein 7.0 Albumin 3.3 Globulin 3.7 Albumin/Globulin Ratio 0.9 L PD Medical Decision Making - ED course Complexity details: reviewed results, re-evaluated patient, d/w patient ED course: Patient presenting for evaluation of left lower extremity in the setting of receiving treatment for bladder cancer. His vital signs appear stable. He does have swelling isolated to the left leg. Distal pulses are intact in extremity appears soft and well perfused. An ultrasound was obtained which I also reviewed and there is no signs of a DVT. An EKG demonstrates a sinus rhythm. Patient denies any chest pain or shortness of air. CBC and chemistry and BNP were also obtained and reviewed and without significant abnormalities. I reviewed the presentation and results with his oncologist, Dr. Kwok ([facility]) Agrees with plan for antibiotics and small amount of Lasix for a few days. He states that his chemo regiment could cause swelling as well as skin irritation but believes that this would likely be more seen on both extremities so does agree with plan for antibiotic course. He will see the patient for his scheduled appointment tomorrow.Patient and his are advised on concerning symptoms to return for. Departure - Departure Disposition: 01 Home, Self Care Clinical Impression: Left leg swelling, Left leg cellulitis Condition: Stable Instructions: ED Infec Skin Cellulitis, ED Leg Swelling Unilateral Prescriptions: cephALEXin [Keflex] 500 mg PO Q6H #28 cap Furosemide [Lasix] 20 mg PO DAILY #3 tablet Comments: Your ultrasound does not show signs of a DVT or blood clot. I have spoken to your oncologist and because of the swelling we are starting you on a small dose of a water pill for 3 days. This is called Lasix. It will make you urinate more. Because of the redness we are also starting you on an antibiotic for possible skin infection. I have sent your prescriptions to [facility] in [place]. Please make sure to follow-up with your oncologist as scheduled tomorrow. If you develop any new or worsening symptoms please return to the emergency department. Discharge Date/Time: 09/27/22 12:23
[2022-09-27 12:23] VITALS: BP 141/81
== END 2022-09-27 12:23 | disposition home or self-care (01) ==
LOC: ED 09:11
DX: L03.116 Cellulitis of left lower limb (principal); R22.42 Localized swelling, mass and lump, left lower limb; C67.9 Malignant neoplasm of bladder, unspecified; Z79.899 Other long term (current) drug therapy
CPT/HCPCS: 36415; 80053; 83880; 85025; 93005; 99284